=== PATIENT | male | born 1965 | race Asian ===

== ENCOUNTER 2020-12-01 02:14 | Emergency (ER) | payer MEDICAID, OTHER ==
[~2020-12-01] VITALS: Ht 177.8 cm; Wt 81.9 kg
[2020-12-01] MEDS ORDERED: GUAIF10 PO (02:50)
[2020-12-01] MEDS ORDERED: IBUP-1506 PO (02:50)
[2020-12-01] MEDS ORDERED: CLON0.1T2 PO (02:50)
[2020-12-01] MEDS ORDERED: DOCU-275 PO (02:50)
[2020-12-01] MEDS ORDERED: LOPE2 PO (02:50)
[2020-12-01] MEDS ORDERED: MOM30 PO (02:50)
[2020-12-01] MEDS ORDERED: OLAN10TA3 PO (02:50)
[2020-12-01] MEDS ORDERED: ACET325S20 PR (02:50)
[2020-12-01 03:07] LABS: BASOPHILS % (AUTO) 0.1 % (0.0-2.0); EOSINOPHILS % (AUTO) 1.7 % (1.0-6.0); HEMATOCRIT 43.2 % (41-53); HEMOGLOBIN 14.3 g/dL (13.5-17.5); LYMPHOCYTES # (AUTO) 1.4 K/uL (1.0-4.8); LYMPHOCYTES % (AUTO) 29.8 % (22.0-44.0); MEAN CORPUSCULAR HEMOGLOBIN 29.6 pg (26.0-34.0); MEAN CORPUSCULAR HGB CONC 33.2 G/dL (31.0-37.0); MEAN CORPUSCULAR VOLUME 89 fL (80-100); MONOCYTES # (AUTO) 0.3 K/uL (0.1-1.0); MONOCYTES % (AUTO) 7.1 % (2.0-9.0); NEUTROPHILS # (AUTO) 2.8 K/uL (1.8-7.7); NEUTROPHILS % (AUTO) 61.3 % (40.0-70.0); PLATELET COUNT (AUTO) 127 K/uL (150-450); RED BLOOD CELL COUNT(AUTO) 4.85 MIL/uL (4.50-5.90); RED CELL DISTRIBUTION WIDTH 13.9 % (11.5-14.5)
[2020-12-01] MEDS ORDERED: HALO5TAB2 PO (03:11)
[2020-12-01] MEDS ORDERED: LORA-1001 PO (03:11)
[2020-12-01] MEDS ORDERED: ONDA-104 PO (03:11)
[2020-12-01] MEDS ORDERED: NICO-650 TP (03:11)
[2020-12-01] MEDS ORDERED: ZOLP10TA8 PO (03:11)
[2020-12-01] MEDS ORDERED: ALBU8HFA IH (03:11)
[2020-12-01 03:18] LABS: ANION GAP 11 mmol/L (8-16); CALCIUM, TOTAL 8.9 mg/dL (8.8-10.5); CARBON DIOXIDE 26 mmol/L (22-29); CHLORIDE 105 mmol/L (98-107); CREATININE 0.94 mg/dL (0.60-1.30); GLOMERULAR FILTR. RATE CALC > 60 mL/min (>60); GLUCOSE,RANDOM 100 mg/dL (70-110); POTASSIUM 3.1 mmol/L (3.5-5.1); SODIUM SERUM 142 mmol/L (136-145); UREA NITROGEN, BLOOD 12 mg/dL (7-18)
[2020-12-01 03:25] LABS: LACTIC ACID 0.7 mmol/L (0.4-2.0)
[2020-12-01 03:42] LABS: ALANINE AMINOTRANSFERASE 31 U/L (12-78); ALBUMIN 3.8 g/dL (3.4-5.0); ALKALINE PHOSPHATASE 68 U/L (46-116); ASPARTATE AMINOTRANSFERASE 20 U/L (15-37); BILIRUBIN,TOTAL 0.7 mg/dL (0.1-1.0); CREATINE KINASE, TOTAL ONLY 278 U/L (39-308); TOTAL PROTEIN, SERUM 7.1 g/dL (6.4-8.2)
[2020-12-01 03:45] VITALS: BP 133/80
[2020-12-01] MEDS ORDERED: POTASSIUM CHLORIDE 20 MEQ ER TABLET PO ONE (04:00)
== END 2020-12-01 04:25 | disposition home or self-care (01) ==
LOC: EMS 02:16
DX: F20.2 Catatonic schizophrenia (principal); Z88.5 Allergy status to narcotic agent
CPT/HCPCS: 70450; 83605; 99284